=== PATIENT | female | born 1975 | race Asian ===

== ENCOUNTER 2019-02-28 00:59 | Emergency (ER) | payer BC ==
[~2019-02-28] VITALS: Ht 172.7 cm; Wt 83.9 kg
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
[2019-02-28] MEDS ORDERED: LISINOPRIL5 MG ORAL (01:03)
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
[2019-02-28] MEDS ORDERED: Morphine Sulfate 4mg/ml Inj (IV USE ONLY) IVP ONE ×2 (01:30→03:30)
[2019-02-28 01:31] LABS: BASOPHILS % (AUTO) 0.7 % (0.0-2.0); EOSINOPHILS % (AUTO) 1.8 % (0.0-3.0); HEMATOCRIT 38.5 % (37.0-47.0); HEMOGLOBIN 13.8 G/DL (12.0-16.0); LYMPHOCYTES % (AUTO) 28.8 % (20.0-45.0); MEAN CORPUSCULAR VOLUME 92 FL (80-99); MONOCYTES % (AUTO) 4.5 % (1.0-10.0); NEUTROPHILS % (AUTO) 64.1 % (45.0-75.0); PLATELET COUNT 313 K/UL (150-450); RED BLOOD COUNT 4.19 M/UL (4.20-5.40); RED CELL DISTRIBUTION WIDTH 10.6 % (11.6-14.8); WHITE BLOOD COUNT 8.5 K/UL (4.8-10.8)
[2019-02-28 01:39] LABS: ANION GAP 10 mmol/L (5-15); BLOOD UREA NITROGEN 19 mg/dL (7-18); CALCIUM 8.7 MG/DL (8.5-10.1); CARBON DIOXIDE 25 MMOL/L (21-32); CHLORIDE 101 MMOL/L (98-107); CREATININE 0.8 MG/DL (0.55-1.30); POTASSIUM 3.8 MMOL/L (3.5-5.1); SODIUM 136 MMOL/L (136-145)
[2019-02-28 01:46] LABS: ALANINE AMINOTRANSFERASE 123 U/L (12-78); ALBUMIN 3.8 G/DL (3.4-5.0); ALBUMIN/GLOBULIN RATIO 1.1 (1.0-2.7); ALKALINE PHOSPHATASE 69 U/L (46-116); ASPARTATE AMINO TRANSFERASE 110 U/L (15-37); BILIRUBIN,TOTAL 0.3 MG/DL (0.2-1.0)
--- NOTE | 2019-02-28 02:30 | NUR ---
ED Nurse Note: pt being taken to imaging for ordered x-rays, pt in bed awake and alert, medicated for pain prior to going, nad noted during pt transport.
[2019-02-28 04:00] VITALS: BP 141/70
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
--- NOTE | 2019-02-28 04:24 | NUR ---
ED Nurse Note: Just informed by edvin mccauley that pt will be transferred to [facility] now, transportation has arrived for pt transport but will take this pt now, report called to edvin willis at [facility], pt being transported via gurney, changed from als transfer to s just now, pt head ct negative for bleed that md thought was before, pt iv line patent, at bedside, pt being transferred via gurney and [id number], verbal report given to christy,driver/refuse collector and has pt personal belongings.
[2019-02-28 04:25] VITALS: BP 141/70
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
== END 2019-02-28 04:25 | disposition short-term general hospital (02) ==
LOC: EDBD 00:59 → EMR 01:30
DX: S42.102A Fracture of unspecified part of scapula, left shoulder, initial encounter for closed fracture (principal); S80.01XA Contusion of right knee, initial encounter; S09.90XA Unspecified injury of head, initial encounter; M54.2 Cervicalgia; M47.816 Spondylosis without myelopathy or radiculopathy, lumbar region; V43.52XA Car driver injured in collision with other type car in traffic accident, initial encounter; Y92.410 Unspecified street and highway as the place of occurrence of the external cause
CPT/HCPCS: 36415; 70450; 72125; 72131; 73030; 73564; 80053; 84703; 85025; 96374; 96375; 96376; 99284; J2270; J2405